=== PATIENT | female | born 1965 | race Caucasian/White ===

== ENCOUNTER → 2025-05-24 | Outpatient (CLI) | payer BC ==
[~2025-05-24] MED LIST: FLUC150A PO; HYDACE5 PO; LEVFLO500 PO
== END | disposition home or self-care (01) ==
LOC: LAB SHORT 18:24 → LAB 18:24
DX: Z01.419 Encounter for gynecological examination (general) (routine) without abnormal findings (principal); B97.7 Papillomavirus as the cause of diseases classified elsewhere
CPT/HCPCS: G0123; G0145